=== PATIENT | male | born 1955 | race Hispanic/Latino ===

== ENCOUNTER → 2023-12-08 | Outpatient (CLI) | payer OTHER ==
[~2023-12-08] MED LIST: IOHEXOL 350 MG/ML 100ML INFUS..BTL IV ONE
== END | disposition home or self-care (01) ==
LOC: RAH 09:04
PROVIDERS: ATTEND Internal Medicine Cardiovascular Disease
DX: I20.9 Angina pectoris, unspecified (principal)
CPT/HCPCS: 75574; Q9967